=== PATIENT | female | born 1990 | race Caucasian/White ===

== ENCOUNTER → 2018-12-25 06:27 | Day surgery (SDC) | payer OTHER ==
[~2018-12-25 06:27] MED LIST: BSS OPTH.SOL* BTL ONE; Buffered Lidocaine 1% SYRIN* 1 ML/SYRINGE INTRADERM ONE; Dexamethasone IV* 4 MG/ML 1 ML (4 MG) IV SLOW PU ONE; Dexamethasone IV* 4 MG/ML 1 ML (4 MG) ONE; DiMENhydriNATE IV* 50 MG/ML VIAL IV PUSH PRN; Famotidine IV* 10 MG/ML 2 ML (20 mg) IV ONE; Famotidine IV* 10 MG/ML 2 ML (20 mg) ONE; Ketorolac INJ* 30 MG/ML 1 ML VIAL ONE; Lactated Ringers 1000 ML Bag* 1,000 ML IV SCH; Lidocaine 2% PF * 5 ML VIAL ONE; Midazolam* 1 MG/ML 2 ML VIAL (2 MG) ONE; Naloxone* 0.4 MG/ML 1 ML VIAL IV PRN; Neomycin/Polymy/Dex OPHTH.OIN* 3.5 GM ONE; Ondansetron INJ* 2 MG/ML VIAL ONE; Phenylephrine OPHTH SOL 2.5%* 2 ML ONE; Povidone Iodine 5% OPTH* 30 ML BTL ONE; Propofol* 10 MG/ML 20 ML BTL ONE; Tetracaine 0.5% OPTH.SOL 4 ML* 1 DROP BTL ONE; fentaNYL* 50 MCG/ML 2 ML VIAL (100 MCG VIAL) IV PRN; fentaNYL* 50 MCG/ML 2 ML VIAL (100 MCG VIAL) ONE
[2018-12-25 10:22] VITALS: BP 100/51
--- NOTE | 2018-12-25 12:26 | OP ---
DATE OF OPERATION: 12/25/18 [facility] DATE OF : 86 SURGEON: Pelon Bhakta MD SPECIAL EDUCATION SCIENCE TEACHER: None. ANESTHESIA: General. PRE-OP DIAGNOSIS: Consecutive exotropia. POST-OP DIAGNOSIS: Consecutive exotropia. OPERATIVE PROCEDURE: Explored and advanced of medial rectus muscle in each eye with adjustable suture, left eye. COMPLICATIONS: None. BLOOD LOSS: Minimal. DESCRIPTION OF PROCEDURE: This patient, who had 3 prior eye muscle surgeries elsewhere, was brought to the operating room and given intravenous sedation. A drop of tetracaine and a drop of phenylephrine were placed in each eye. Speculum was placed to the right eye where forced ductions were performed and appeared to be normal. The conjunctival scarring was noted temporally and nasally. The eye was grasped at the inferonasal quadrant of the limbus and brought to supratemporal gaze. Inferotemporal fornix incision was created with New scissors. The medial rectus muscle was isolated on a small muscle hook. Sharp and blunt dissection were performed to clear scar tissue both anterior to the muscle as well as overlying it. Eventually, the muscle was cleaned and isolated on a Sutherlin muscle hook. The muscle was broadly inserted but located approximately 11.5 mm posterior to the original insertion. A Charlie muscle clamp was placed across the muscle near its insertion. The hook was removed. The muscle was gently disinserted from the globe with a New scissor. A double-arm 6-0 Vicryl suture was woven through muscle at its distal end and locked securely. The Charlie muscle clamp was removed. The muscle was inspected and found to be secured on the sutures. A oliver was made with a caliper 6.5 mm posterior to the limbus. The muscle was advanced to this location and tied securely. The conjunctiva was closed with interrupted 6-0 gut sutures. The speculum was removed and placed in the left eye. Here, again forced ductions were performed and appeared normal. Again scarring was noted nasally and temporally. In similar fashion, the inferonasal limbus was grasped at the conjunctiva and the eye was brought to superotemporal gaze. An inferonasal fornix incision was created with New scissor. The medial rectus muscle was isolated on a small hook. Again, sharp and blunt dissection were performed to clean the muscle and the muscle was then rasped with a Sutherlin muscle hook. Again, the muscle was found to be approximately 11.5 mm posterior to the limbus. A Sutherlin muscle clamp was placed across the muscle and the muscle was disinserted in the globe. A 6-0 Vicryl suture was woven through the muscle at its distal end and the Sutherlin muscle clamp was removed. The muscle was inspected and found to be secured on the sutures. A oliver was made on the sclera with caliper 6 mm posterior to the limbus. The muscle was advanced to that point and the sutures were tied in a bow. The conjunctiva was left open. Topical tetracaine was placed in each eye and the patient was awakened uneventfully and sent to the recovery room. Approximately half an hour later, the patient was re- examined and found to have a very small exotropia both in the distance and near. The patient was brought back to the operating room where a drop of tetracaine was placed at each eye. In clean fashion, the speculum was replaced into left eye and the Vicryl suture bow was released. The muscle was tightened approximately another millimeter. The bow was re-tied. The patient was re-examined and a flick of exotropia was noted. The bow was converted to a knot and the conjunctiva was closed with interrupted 6-0 gut sutures. The speculum was removed and topical Maxitrol ointment was placed in each eye. The patient was sent to recovery room in stable condition with postoperative instructions and followup appointment given. [id number] #: [id number]
== END | disposition home or self-care (01) ==
LOC: OREAST 06:27
PROVIDERS: ATTEND Ophthalmology
DX: H50.15 Alternating exotropia (principal); F17.200 Nicotine dependence, unspecified, uncomplicated
CPT/HCPCS: 81025; A9270-GY; J1100; J1885; J2250; J2405; J2704; J3010